=== PATIENT | male | born 1990 | race American Indian/Alaskan Native ===

== ENCOUNTER 2021-05-17 18:13 | Emergency (ER) | payer OTHER ==
--- NOTE | 2021-05-18 11:53 | Electrocardiograph Report ---
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 No previous ECG available for comparison Electronically Signed On 05-18-2021 11:52:59 EDT by Braeden Hadley
== END 2021-05-17 19:49 | disposition left against medical advice (07) ==
LOC: ED 18:13
DX: R07.9 Chest pain, unspecified (principal); R10.9 Unspecified abdominal pain; Z53.21 Procedure and treatment not carried out due to patient leaving prior to being seen by health care provider
CPT/HCPCS: 93005